=== PATIENT | female | born 1980 | race African-American/Black ===

== ENCOUNTER 2019-04-13 16:23 | Inpatient (IN) | payer OTHER ==
[2019-04-13 22:21] VITALS: BMI 26.9
[2019-04-14] MEDS ORDERED: MENTHOL/PHENOL 1 EACH UD MM PRN (02:26)
[2019-04-14] MEDS ORDERED: MAGNESIUM CITRATE 300 ML BOTTLE PO PRN (02:26)
[2019-04-14] MEDS ORDERED: ACETAMINOPHEN 325 MG TABLET (FP) PO PRN (02:26)
[2019-04-14] MEDS ORDERED: LOPERAMIDE HCL 2 MG CAPSULE PO PRN (02:26)
[2019-04-14] MEDS ORDERED: P-EPHED 60MG/TRIPROLIDI 2.5MG TABLET PO PRN (02:26)
[2019-04-14] MEDS ORDERED: hydrOXYzine PAMOATE 50 MG CAPSULE (FP) PO PRN (02:26)
[2019-04-14] MEDS ORDERED: guaiFENesin 200 MG/10 ML 10 ML UNIT-DOSE CUPS PO PRN (02:26)
--- NOTE | 2019-04-14 02:33 | PN ---
[facility] Progress Note (SOAP) Subjective: HERE FOR REHAB FOR COCAINE DEPENDENCE. REFERRED BY [facility] Objective: 04/14/19 02:23 A/O X3 NAD NCAT/PERRLA CV RRR LUNGS- CTAB EXTREMITIES- WNL FROM X4 SKIN- DRY INTACT UTOX + VESNA NEG [facility] [place] Assessment: 04/14/19 02:25 COCAINE DEPENDENCE Plan: ADMIT TO REHAB
[2019-04-14] MEDS: NICOTINE 14 MG/24 HOURS TOPICAL PATCH TD SCH (09:40)
[2019-04-14] MEDS: PRENATAL VITAMINS W/ FOLIC ACID TABLET (FP) PO SCH (09:40)
[2019-04-14 12:15] LABS: HEMATOCRIT 36.2 % (32.4-45.2); HEMOGLOBIN 12.2 GM/dL (10.7-15.3); MCH 28.5 pg (25.7-33.7); MCHC 33.6 g/dl (32.0-36.0); MEAN CELL VOLUME 84.9 fl (80-96); MEAN PLT VOLUME 8.9 fl (7.5-11.1); PLATELET COUNT 207 K/MM3 (134-434); RBC 4.27 M/mm3 (3.60-5.2); RDW 14.3 % (11.6-15.6); WHITE BLOOD COUNT 6.5 K/mm3 (4.0-10.0)
[2019-04-14 12:54] LABS: ALBUMIN 3.8 g/dl (3.4-5.0); BILIRUBIN,TOTAL 0.4 mg/dL (0.2-1); BLOOD UREA NITROGEN 10.4 mg/dL (7-18); CALCIUM 8.8 mg/dL (8.5-10.1); CREATININE 0.8 mg/dL (0.55-1.3); POTASSIUM 4.2 mmol/L (3.5-5.1); TOT PROT 7.4 g/dl (6.4-8.2)
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
--- NOTE | 2019-04-14 15:15 | PN ---
[facility] Progress Note Note: Asked by Nursing staff to order medications for newly admitted patient from [facility]. Medication reconciliation done. Depakote 500 mg/bid, Prozac 20 mg/day and Seroquel 100 mg/hs ordered
[2019-04-14 17:24] LABS: EPI CELLS 18.2 /HPF (0-5/HPF); HYALINE CASTS 5 /lpf (0-8); URINE APPEARANCE CLOUDY; URINE BACTERIA 1260.1 /hpf (NEGATIVE); URINE BILIRUBIN NEGATIVE (NEGATIVE); URINE COLOR YELLOW; URINE GLUCOSE (UA) NEGATIVE (NEGATIVE); URINE KETONE NEGATIVE (NEGATIVE); URINE LEUK ESTERASE 3+ (NEGATIVE); URINE NITRITE NEGATIVE (NEGATIVE); URINE PROTEIN NEGATIVE (NEGATIVE); URINE RBC 1 /hpf (0-4); URINE UROBILINOGEN 0.2 mg/dL (0.2-1.0); URINE WBC 73 /hpf (0-5)
[2019-04-14] MEDS: QUEtiapine FUMARATE 100 MG TABLET (FP) PO SCH (21:37)
[2019-04-14] MEDS: DIVALPROEX SODIUM 500 MG TABLET E.C. PO SCH (21:37)
[2019-04-14] MEDS: THIAMINE HCL 100 MG TABLET (FP) PO SCH (21:37)
[2019-04-15] MEDS: NICOTINE 14 MG/24 HOURS TOPICAL PATCH TD SCH (09:48)
[2019-04-15] MEDS: PANTOPRAZOLE 40 MG TABLET (FP) PO SCH (09:49)
[2019-04-15] MEDS: FLUoxetine HCL 20 MG CAPSULE (FP) PO SCH (09:49)
[2019-04-15] MEDS: IBUPROFEN 400 MG TABLET (FP) PO PRN (09:49)
[2019-04-15] MEDS: DIVALPROEX SODIUM 500 MG TABLET E.C. PO SCH ×2 (09:49→21:44)
[2019-04-15] MEDS: PRENATAL VITAMINS W/ FOLIC ACID TABLET (FP) PO SCH (09:49)
--- NOTE | 2019-04-15 12:19 | PN ---
[facility] Progress Note (SOAP) Subjective: rash where patient had nicoderm patch. Objective: Red raised area on left upper chest approximately 3inches in diameter. 04/15/19 12:17 Assessment: allergic reaction to nicoderm patch. 04/15/19 12:18 Plan: patch removed, will order benadryl cream. Advised patient to us gum, will continue to monitor.
[2019-04-15] MEDS: NICOTINE POLACRILEX 2 MG GUM BC PRN (14:45)
--- NOTE | 2019-04-15 14:51 | EKG ---
Test Reason : Blood Pressure : / mmHG Vent. Rate : 064 BPM Atrial Rate : 064 BPM P-R Int : 194 ms QRS Dur : 084 ms QT Int : 458 ms P-R-T Axes : 057 043 046 degrees QTc Int : 472 ms NORMAL SINUS RHYTHM WITH SINUS ARRHYTHMIA NORMAL ECG NO PREVIOUS ECGS AVAILABLE Confirmed by QUINN CRUZ MD ([id number]) on 04/15/2019 2:50:50 PM Referred By: Confirmed By:QUINN CRUZ MD
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
[2019-04-15] MEDS: METHOCARBAMOL 500 MG TABLET PO PRN (21:43)
[2019-04-15] MEDS: QUEtiapine FUMARATE 100 MG TABLET (FP) PO SCH (21:44)
[2019-04-15] MEDS: MELATONIN 5 MG TABLETS PO PRN (21:44)
[2019-04-15] MEDS: THIAMINE HCL 100 MG TABLET (FP) PO SCH (21:44)
[2019-04-16] MEDS: DIVALPROEX SODIUM 500 MG TABLET E.C. PO SCH ×2 (09:24→21:44)
[2019-04-16] MEDS: PRENATAL VITAMINS W/ FOLIC ACID TABLET (FP) PO SCH (09:24)
[2019-04-16] MEDS: FLUoxetine HCL 20 MG CAPSULE (FP) PO SCH (09:25)
[2019-04-16] MEDS: PANTOPRAZOLE 40 MG TABLET (FP) PO SCH (09:25)
[2019-04-16] MEDS: NICOTINE POLACRILEX 2 MG GUM BC PRN ×2 (09:26→21:44)
[2019-04-16] MEDS: MAG HYDROX/AL HYDROX/SIMETH 30 ML UNIT-DOSE CUP PO PRN (12:00)
[2019-04-16] MEDS: METHOCARBAMOL 500 MG TABLET PO PRN (12:28)
[2019-04-16] MEDS: THIAMINE HCL 100 MG TABLET (FP) PO SCH (21:43)
[2019-04-16] MEDS: QUEtiapine FUMARATE 100 MG TABLET (FP) PO SCH (21:44)
[2019-04-17] MEDS: DIVALPROEX SODIUM 500 MG TABLET E.C. PO SCH ×2 (10:03→21:24)
[2019-04-17] MEDS: FLUoxetine HCL 20 MG CAPSULE (FP) PO SCH (10:03)
[2019-04-17] MEDS: PANTOPRAZOLE 40 MG TABLET (FP) PO SCH (10:03)
[2019-04-17] MEDS: PRENATAL VITAMINS W/ FOLIC ACID TABLET (FP) PO SCH (10:03)
[2019-04-17] MEDS: NICOTINE POLACRILEX 2 MG GUM BC PRN (21:24)
[2019-04-17] MEDS: THIAMINE HCL 100 MG TABLET (FP) PO SCH (21:24)
[2019-04-17] MEDS: QUEtiapine FUMARATE 100 MG TABLET (FP) PO SCH (21:24)
[2019-04-17] MEDS: MELATONIN 5 MG TABLETS PO PRN (21:24)
[2019-04-18] MEDS: PRENATAL VITAMINS W/ FOLIC ACID TABLET (FP) PO SCH (09:23)
[2019-04-18] MEDS: DIVALPROEX SODIUM 500 MG TABLET E.C. PO SCH ×2 (09:23→21:08)
[2019-04-18] MEDS: FLUoxetine HCL 20 MG CAPSULE (FP) PO SCH (09:23)
[2019-04-18] MEDS: PANTOPRAZOLE 40 MG TABLET (FP) PO SCH (09:23)
[2019-04-18] MEDS: MAG HYDROX/AL HYDROX/SIMETH 30 ML UNIT-DOSE CUP PO PRN (15:13)
[2019-04-18] MEDS: METHOCARBAMOL 500 MG TABLET PO PRN (20:14)
[2019-04-18] MEDS: QUEtiapine FUMARATE 100 MG TABLET (FP) PO SCH (21:08)
[2019-04-18] MEDS: THIAMINE HCL 100 MG TABLET (FP) PO SCH (21:08)
[2019-04-19] MEDS: FLUoxetine HCL 20 MG CAPSULE (FP) PO SCH (09:39)
[2019-04-19] MEDS: DIVALPROEX SODIUM 500 MG TABLET E.C. PO SCH ×2 (09:39→21:33)
[2019-04-19] MEDS: PANTOPRAZOLE 40 MG TABLET (FP) PO SCH (09:39)
[2019-04-19] MEDS: PRENATAL VITAMINS W/ FOLIC ACID TABLET (FP) PO SCH (09:39)
[2019-04-19] MEDS: METHOCARBAMOL 500 MG TABLET PO PRN (11:46)
[2019-04-19] MEDS: MAG HYDROX/AL HYDROX/SIMETH 30 ML UNIT-DOSE CUP PO PRN (12:04)
[2019-04-19] MEDS ORDERED: PT OWN MED DRAWER 7, Y5N ONE (20:57)
[2019-04-19] MEDS: QUEtiapine FUMARATE 100 MG TABLET (FP) PO SCH (21:34)
[2019-04-19] MEDS: THIAMINE HCL 100 MG TABLET (FP) PO SCH (21:34)
[2019-04-20] MEDS: METHOCARBAMOL 500 MG TABLET PO PRN ×2 (06:57→16:00)
[2019-04-20] MEDS: IBUPROFEN 400 MG TABLET (FP) PO PRN ×2 (07:48→19:25)
[2019-04-20] MEDS: PRENATAL VITAMINS W/ FOLIC ACID TABLET (FP) PO SCH (10:03)
[2019-04-20] MEDS: DIVALPROEX SODIUM 500 MG TABLET E.C. PO SCH ×2 (10:04→21:36)
[2019-04-20] MEDS: PANTOPRAZOLE 40 MG TABLET (FP) PO SCH (10:04)
[2019-04-20] MEDS: FLUoxetine HCL 20 MG CAPSULE (FP) PO SCH (10:04)
[2019-04-20] MEDS: NICOTINE POLACRILEX 2 MG GUM BC PRN (10:05)
[2019-04-20] MEDS: THIAMINE HCL 100 MG TABLET (FP) PO SCH (21:36)
[2019-04-20] MEDS: QUEtiapine FUMARATE 100 MG TABLET (FP) PO SCH (21:36)
[2019-04-21] MEDS: DIVALPROEX SODIUM 500 MG TABLET E.C. PO SCH ×2 (10:24→21:38)
[2019-04-21] MEDS: PRENATAL VITAMINS W/ FOLIC ACID TABLET (FP) PO SCH (10:24)
[2019-04-21] MEDS: FLUoxetine HCL 20 MG CAPSULE (FP) PO SCH (10:24)
[2019-04-21] MEDS: LIDOCAINE 5% TOPICAL PATCH TP SCH (10:24)
[2019-04-21] MEDS: PANTOPRAZOLE 40 MG TABLET (FP) PO SCH (10:25)
[2019-04-21] MEDS: MAGNESIUM HYDROX 2400MG/30ML ORAL SUSPENSION 30 ML CUP PO PRN (11:56)
--- NOTE | 2019-04-21 15:54 | PN ---
[facility] Progress Note (SOAP) Subjective: Patient wants to start Vivitrol. Objective: Urine Tox dpne, negative for opiates, + for marjuana. 04/21/19 15:51 04/21/19 15:53 Vital Signs (72 hours) 04/19/19 04/19/19 04/20/19 03:30 07:19 00:30 Temperature 97.1 F L Pulse Rate 75 Respiratory 16 16 18 Rate Blood Pressure 102/65 04/20/19 04/21/19 04/21/19 07:22 00:30 03:30 Temperature 98.3 F Pulse Rate 80 Respiratory 18 16 16 Rate Blood Pressure 92/63 04/21/19 07:24 Temperature 97.3 F L Pulse Rate 91 H Respiratory 18 Rate Blood Pressure 106/69 Assessment: Opioid dependence. 04/21/19 15:52 Plan: Will start Vivitrol after the patient's counselor arranges for the patient to continue treatment after discharge. Educated about VIvitrol.
[2019-04-21] MEDS: QUEtiapine FUMARATE 100 MG TABLET (FP) PO SCH (21:38)
[2019-04-21] MEDS: THIAMINE HCL 100 MG TABLET (FP) PO SCH (21:38)
[2019-04-21] MEDS: METHYL SALICYLATE/MENTHOL OINT 30 GM TUBE TP SCH (21:38)
[2019-04-21] MEDS: LIDOCAINE PATCH REMOVAL MC SCH (21:39)
[2019-04-22] MEDS: PRENATAL VITAMINS W/ FOLIC ACID TABLET (FP) PO SCH (10:14)
[2019-04-22] MEDS: DIVALPROEX SODIUM 500 MG TABLET E.C. PO SCH ×2 (10:14→21:22)
[2019-04-22] MEDS: FLUoxetine HCL 20 MG CAPSULE (FP) PO SCH (10:14)
[2019-04-22] MEDS: LIDOCAINE 5% TOPICAL PATCH TP SCH (10:14)
[2019-04-22] MEDS: PANTOPRAZOLE 40 MG TABLET (FP) PO SCH (10:14)
[2019-04-22] MEDS: NICOTINE POLACRILEX 2 MG GUM BC PRN ×2 (10:57→21:23)
[2019-04-22] MEDS: MAGNESIUM HYDROX 2400MG/30ML ORAL SUSPENSION 30 ML CUP PO PRN (16:41)
[2019-04-22] MEDS: THIAMINE HCL 100 MG TABLET (FP) PO SCH (21:22)
[2019-04-22] MEDS: QUEtiapine FUMARATE 100 MG TABLET (FP) PO SCH (21:22)
[2019-04-22] MEDS: LIDOCAINE PATCH REMOVAL MC SCH (21:24)
[2019-04-22] MEDS: METHYL SALICYLATE/MENTHOL OINT 30 GM TUBE TP SCH (21:24)
[2019-04-23] MEDS: LIDOCAINE 5% TOPICAL PATCH TP SCH (09:34)
[2019-04-23] MEDS: DIVALPROEX SODIUM 500 MG TABLET E.C. PO SCH ×2 (09:34→21:32)
[2019-04-23] MEDS: PANTOPRAZOLE 40 MG TABLET (FP) PO SCH (09:35)
[2019-04-23] MEDS: PRENATAL VITAMINS W/ FOLIC ACID TABLET (FP) PO SCH (09:35)
[2019-04-23] MEDS: FLUoxetine HCL 20 MG CAPSULE (FP) PO SCH (09:35)
--- NOTE | 2019-04-23 13:12 | PN ---
[facility] COWS - Scale Resting Pulse: 1= MS 81-100 Sweatin= No chills or Flushing Restless Observation: 0= Sits Still Pupil Size: 0= Normal to Room Light Bone or Joint Aches: 1= Mild Discomfort Runny Nose/ Eye Tearin= Nasal Congestion GI Upset > 30mins: 0= None Tremor Observation of Outstretched Hands: 0= None Yawning Observation: 0= None Anxiety or Irritability: 1=Feels Anxious/Irritable Goose Flesh Skin: 0=Smooth Skin COWS Score: 4 B[facility] Progress Note (SOAP) Subjective: Patient wants to start Vivitrol. Objective: General: appropriate, calm, able to make needs know, understands instructions. 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 Urine toxicology was negative for opiates. 04/23/19 13: CBC, BMP 04/14/19 08:10 04/14/19 08:10 Vital Signs (72 hours) 04/21/19 04/21/19 04/21/19 00:30 03:30 07:24 Temperature 97.3 F L Pulse Rate 91 H Respiratory 16 16 18 Rate Blood Pressure 106/69 04/22/19 04/22/19 04/23/19 00:30 07:31 00:30 Temperature 97.1 F L Pulse Rate 80 Respiratory 18 18 18 Rate Blood Pressure 122/78 04/23/19 04/23/19 03:30 07:32 Temperature 97.0 F L Pulse Rate 94 H Respiratory 18 18 Rate Blood Pressure 105/68 04/23/19 13:14 04/23/19 13:21 04/23/19 13:24 Assessment: Opiate dependence, treated with Vivitrol MAT 04/23/19 13:17 04/23/19 13:21 04/23/19 13:23 Plan: Patient will start on Naltrexone 50 mg daily starting today until discharge. She will be referred to the [facility] and will start with the IM Vivitrol at that center. Patient agrees with plan.
[2019-04-23] MEDS: METHOCARBAMOL 500 MG TABLET PO PRN (14:09)
[2019-04-23] MEDS: NALTREXONE HCL 50 MG TABLET PO SCH (15:00)
[2019-04-23] MEDS: MAG HYDROX/AL HYDROX/SIMETH 30 ML UNIT-DOSE CUP PO PRN (19:20)
[2019-04-23] MEDS: THIAMINE HCL 100 MG TABLET (FP) PO SCH (21:31)
[2019-04-23] MEDS: QUEtiapine FUMARATE 100 MG TABLET (FP) PO SCH (21:32)
[2019-04-23] MEDS: METHYL SALICYLATE/MENTHOL OINT 30 GM TUBE TP SCH (21:32)
[2019-04-23] MEDS: LIDOCAINE PATCH REMOVAL MC SCH (21:32)
[2019-04-24] MEDS ORDERED: PT OWN MED DRAWER 7, Y5N ONE (08:54)
[2019-04-24] MEDS: LIDOCAINE 5% TOPICAL PATCH TP SCH (10:14)
[2019-04-24] MEDS: DIVALPROEX SODIUM 500 MG TABLET E.C. PO SCH ×2 (10:14→21:10)
[2019-04-24] MEDS: NALTREXONE HCL 50 MG TABLET PO SCH (10:15)
[2019-04-24] MEDS: FLUoxetine HCL 20 MG CAPSULE (FP) PO SCH (10:15)
[2019-04-24] MEDS: PRENATAL VITAMINS W/ FOLIC ACID TABLET (FP) PO SCH (10:16)
[2019-04-24] MEDS: PANTOPRAZOLE 40 MG TABLET (FP) PO SCH (10:16)
[2019-04-24] MEDS: NICOTINE POLACRILEX 2 MG GUM BC PRN (10:17)
[2019-04-24] MEDS: METHOCARBAMOL 500 MG TABLET PO PRN ×2 (10:17→21:10)
[2019-04-24] MEDS: LIDOCAINE PATCH REMOVAL MC SCH (21:10)
[2019-04-24] MEDS: QUEtiapine FUMARATE 100 MG TABLET (FP) PO SCH (21:10)
[2019-04-24] MEDS: THIAMINE HCL 100 MG TABLET (FP) PO SCH (21:10)
[2019-04-24] MEDS: METHYL SALICYLATE/MENTHOL OINT 30 GM TUBE TP SCH (21:11)
[2019-04-24] MEDS: MELATONIN 5 MG TABLETS PO PRN (21:11)
[2019-04-25] MEDS: NALTREXONE HCL 50 MG TABLET PO SCH (09:52)
[2019-04-25] MEDS: LIDOCAINE 5% TOPICAL PATCH TP SCH (09:52)
[2019-04-25] MEDS: FLUoxetine HCL 20 MG CAPSULE (FP) PO SCH (09:53)
[2019-04-25] MEDS: PRENATAL VITAMINS W/ FOLIC ACID TABLET (FP) PO SCH (09:53)
[2019-04-25] MEDS: PANTOPRAZOLE 40 MG TABLET (FP) PO SCH (09:54)
[2019-04-25] MEDS: DIVALPROEX SODIUM 500 MG TABLET E.C. PO SCH ×2 (09:55→21:13)
[2019-04-25] MEDS: NICOTINE POLACRILEX 2 MG GUM BC PRN (14:38)
[2019-04-25] MEDS: MELATONIN 5 MG TABLETS PO PRN (21:13)
[2019-04-25] MEDS: THIAMINE HCL 100 MG TABLET (FP) PO SCH (21:13)
[2019-04-25] MEDS: QUEtiapine FUMARATE 100 MG TABLET (FP) PO SCH (21:13)
[2019-04-25] MEDS: LIDOCAINE PATCH REMOVAL MC SCH (21:13)
[2019-04-25] MEDS: METHYL SALICYLATE/MENTHOL OINT 30 GM TUBE TP SCH (21:14)
[2019-04-26] MEDS: MAG HYDROX/AL HYDROX/SIMETH 30 ML UNIT-DOSE CUP PO PRN (07:32)
[2019-04-26] MEDS: NALTREXONE HCL 50 MG TABLET PO SCH (09:19)
[2019-04-26] MEDS: LIDOCAINE 5% TOPICAL PATCH TP SCH (09:19)
[2019-04-26] MEDS: FLUoxetine HCL 20 MG CAPSULE (FP) PO SCH (09:20)
[2019-04-26] MEDS: PRENATAL VITAMINS W/ FOLIC ACID TABLET (FP) PO SCH (09:20)
[2019-04-26] MEDS: PANTOPRAZOLE 40 MG TABLET (FP) PO SCH (09:20)
[2019-04-26] MEDS: DIVALPROEX SODIUM 500 MG TABLET E.C. PO SCH ×2 (09:20→21:26)
[2019-04-26] MEDS: METHOCARBAMOL 500 MG TABLET PO PRN (10:22)
[2019-04-26] MEDS: NICOTINE POLACRILEX 2 MG GUM BC PRN (10:23)
[2019-04-26] MEDS: IBUPROFEN 400 MG TABLET (FP) PO PRN (11:52)
[2019-04-26] MEDS: QUEtiapine FUMARATE 100 MG TABLET (FP) PO SCH (21:26)
[2019-04-26] MEDS: MELATONIN 5 MG TABLETS PO PRN (21:26)
[2019-04-26] MEDS: THIAMINE HCL 100 MG TABLET (FP) PO SCH (21:26)
[2019-04-26] MEDS: LIDOCAINE PATCH REMOVAL MC SCH (21:28)
[2019-04-26] MEDS: METHYL SALICYLATE/MENTHOL OINT 30 GM TUBE TP SCH (21:28)
--- NOTE | 2019-04-27 06:22 | PN ---
[facility] Progress Note Note: Patient is scheduled for discharge today, Scripts for 30 days supply of medications(Prozac 20 mg/day, Depakote 500 mg/bid)are electronically transmitted to [facility] at [address] [place] [address]
[2019-04-27 06:36] VITALS: BP 112/75; PULSE 73; TEMP 97.8
[2019-04-27] MEDS: MAG HYDROX/AL HYDROX/SIMETH 30 ML UNIT-DOSE CUP PO PRN (07:05)
[2019-04-27] MEDS ORDERED: PT OWN MED DRAWER 7, Y5N ONE (09:08)
[2019-04-27] MEDS: LIDOCAINE 5% TOPICAL PATCH TP SCH (09:13)
[2019-04-27] MEDS: PANTOPRAZOLE 40 MG TABLET (FP) PO SCH (09:13)
[2019-04-27] MEDS: PRENATAL VITAMINS W/ FOLIC ACID TABLET (FP) PO SCH (09:13)
[2019-04-27] MEDS: FLUoxetine HCL 20 MG CAPSULE (FP) PO SCH (09:13)
[2019-04-27] MEDS: NALTREXONE HCL 50 MG TABLET PO SCH (09:13)
[2019-04-27] MEDS: DIVALPROEX SODIUM 500 MG TABLET E.C. PO SCH (09:13)
--- NOTE | 2019-04-27 14:50 | PN ---
[facility] Progress Note (SOAP) Subjective: PT COMPLETED REHAB AND DISCHARGED TODAY. PT PARTICIPATED IN GROUP AND INDIVIDUAL THERAPY WHILE IN REHAB. PT PARTICIPATED IN GROUP AND INDIVIDUAL THERAPY. PT MET WITH HER COUNSELOR, ANDREW HARE AND HAS BEEN REFERRED TO [facility] FOR CD AFTERCARE. PT REPORTS SHE HAS A PCP AT [place], [place]. PT DENIES S/H/I. Objective: 04/27/19 14:50 Vital Signs - 24 hr 04/27/19 04/27/19 04/27/19 00:30 03:30 06:35 Temperature 97.8 F Pulse Rate 73 Respiratory 17 17 16 Rate Blood Pressure 112/75 Laboratory Tests 04/14/19 04/14/19 04/14/19 01:24 08:10 08:10 WBC 6.5 RBC 4.27 Hgb 12.2 Hct 36.2 MCV 84.9 MCH 28.5 MCHC 33.6 RDW 14.3 Plt Count 207 MPV 8.9 Sodium 138 Potassium 4.2 Chloride 107 Carbon Dioxide 23 Anion Gap 8 BUN 10.4 Creatinine 0.8 Est GFR (CKD-EPI)AfAm 109.16 Est GFR (CKD-EPI)NonAf 94.18 Random Glucose 97 Calcium 8.8 Total Bilirubin 0.4 AST 14 L ALT 22 Alkaline Phosphatase 68 Total Protein 7.4 Albumin 3.8 Urine Color Urine Appearance Urine pH Ur Specific [place] Urine Protein Urine Glucose (UA) Urine Ketones Urine Blood Urine Nitrite Urine Bilirubin Urine Urobilinogen Ur Leukocyte Esterase Urine WBC (Auto) Urine RBC (Auto) Urine Casts (Auto) U Epithel Cells (Auto) Urine Bacteria (Auto) POC Urine HCG, Qual Negative RPR Titer 04/14/19 04/14/19 08:10 14:22 WBC RBC Hgb Hct MCV MCH MCHC RDW Plt Count MPV Sodium Potassium Chloride Carbon Dioxide Anion Gap BUN Creatinine Est GFR (CKD-EPI)AfAm Est GFR (CKD-EPI)NonAf Random Glucose Calcium Total Bilirubin AST ALT Alkaline Phosphatase Total Protein Albumin Urine Color Yellow Urine Appearance Cloudy Urine pH 7.0 Ur Specific [place] 1.015 Urine Protein Negative Urine Glucose (UA) Negative Urine Ketones Negative Urine Blood Negative Urine Nitrite Negative Urine Bilirubin Negative Urine Urobilinogen 0.2 Ur Leukocyte Esterase 3+ H Urine WBC (Auto) 73 Urine RBC (Auto) 1 Urine Casts (Auto) 5 U Epithel Cells (Auto) 18.2 Urine Bacteria (Auto) 1260.1 POC Urine HCG, Qual RPR Titer Nonreactive ASYMPTOMATIC. COPY OF LAB GIVEN TO PT FOR FOLLOW UP WITH PCP IF SYMPTOMATIC. 04/27/19 14:58 Home Medications Medication Instructions Recorded Depakote - 500 mg PO BID 04/14/19 Seroquel 100 mg PO HS 04/14/19 Divalproex [Depakote -] 500 mg PO BID #60 tablet.ec 04/27/19 Fluoxetine HCl [Prozac -] 20 mg PO DAILY #30 capsule 04/27/19 Quetiapine Fumarate [Seroquel] 100 mg PO HS #30 tablet 04/27/19 Assessment: 04/27/19 14:54 NAD MEDICALLY STABLE 04/27/19 14:59 [facility] Inpatient Services Medical - Diagnosis (1) Cocaine dependence Qualifiers: Substance use status: uncomplicated Qualified Code(s): F14.20 - Cocaine dependence, uncomplicated Status: Chronic (2) Hx of iron deficiency anemia Status: Suspected (3) Hx of gastroesophageal reflux (GERD) Status: Chronic Initialized on 04/27/19 14:58 - END OF NOTE Plan: FOLLOW UP WITH CD AFTERCARE RECOMMENDATION. FOLLOW UP WITH PCP AT [facility] IN THE [place] WITHIN 1 WEEK AFTER DISCHARGE.
== END 2019-04-27 09:30 | disposition home or self-care (01) | DRG 772 ==
LOC: YASAS 16:23 → Y3E 04-14 02:39
PROVIDERS: ADMIT Neuromusculoskeletal Medicine & OMM; ATTEND Neuromusculoskeletal Medicine & OMM
PROC: HZ42ZZZ Group Counseling for Substance Abuse Treatment, Cognitive-Behavioral (ICD-10-PCS; principal; 2019-04-14)
DX: F14.20 Cocaine dependence, uncomplicated (principal); F17.210 Nicotine dependence, cigarettes, uncomplicated; F25.9 Schizoaffective disorder, unspecified; R21 Rash and other nonspecific skin eruption; T44.1X5A Adverse effect of other parasympathomimetics [cholinergics], initial encounter; Y92.239 Unspecified place in hospital as the place of occurrence of the external cause
CPT/HCPCS: 36415; 80053; 81003; 81025; 85027; 86593; 93005; 93010